=== PATIENT | male | born 2000 | race Caucasian/White ===

== ENCOUNTER 2022-01-13 17:37 | Emergency (ER) | payer BC ==
[~2022-01-13] VITALS: Ht 190.5 cm; Wt 76.4 kg
[2022-01-13 17:51] VITALS: TEMP 98.6
[2022-01-13 18:42] LABS: EOS # 0.1 K/mm3 (0.0-0.7); EOS % 1.8 % (0.0-4.0); GRAN # 3.2 K/mm3 (1.4-6.5); GRAN % 65.5 % (42.2-75.2); HEMOGLOBIN 15.2 g/dl (13.5-18.0); LYMPH # 0.9 K/mm3 (1.2-3.4); MEAN CELL VOLUME 85 fl (80.0-100.0); MEAN CORPUSCULAR HEMOGLOBIN 31 pg (27-31); MEAN CORPUSCULAR HGB CONC 36 g/dl (33.0-37.0); MEAN PLATELET VOLUME 9.3 fl (7.4-10.4); MONO # 0.7 K/mm3 (0.1-0.6); MONO % 13.5 % (1.7-9.3); PLATELET COUNT 186 K/mm3 (130-400); RED BLOOD COUNT 4.94 M/mm3 (4.20-5.60); REDCELL DISTRIBUTION WIDTH-CV 12.6 % (11.5-14.5)
[2022-01-13 18:58] LABS: CALCIUM 8.4 mg/dL (8.4-10.2); CREATININE, serum 0.95 mg/dL (0.72-1.25); TOTAL PROTEIN 6.7 gm/dL (6.2-8.1)
[2022-01-13 19:42] LABS: MONOSCREEN NEGATIVE
[2022-01-13 20:11] VITALS: BP 136/81; PULSE 82
== END 2022-01-13 20:11 | disposition home or self-care (01) ==
LOC: COL.ER 17:37
PROVIDERS: Physician Assistant
DX: K59.00 Constipation, unspecified (principal)
CPT/HCPCS: J7030